=== PATIENT | male | born 1990 | race Caucasian/White ===

== ENCOUNTER 2017-04-09 11:43 | Emergency (ER) | payer SELFPAY | END 2017-04-09 15:17 | disposition home or self-care (01) | LOC: D.ER 11:43 | DX: J01.90 Acute sinusitis, unspecified (principal); J20.9 Acute bronchitis, unspecified ==

== ENCOUNTER 2017-06-01 02:09 | Emergency (ER) | payer MEDICAID | END 2017-06-01 02:51 | disposition home or self-care (01) | LOC: D.ER 02:09 | DX: J20.9 Acute bronchitis, unspecified (principal); H66.92 Otitis media, unspecified, left ear; F17.200 Nicotine dependence, unspecified, uncomplicated ==

== ENCOUNTER 2017-06-24 07:07 | Emergency (ER) | payer MEDICAID | END 2017-06-24 08:08 | disposition home or self-care (01) | LOC: D.ER 07:07 | DX: J11.1 Influenza due to unidentified influenza virus with other respiratory manifestations (principal); F17.200 Nicotine dependence, unspecified, uncomplicated ==

== ENCOUNTER 2017-06-29 20:30 | Emergency (ER) | payer MEDICAID | END 2017-06-29 21:10 | disposition home or self-care (01) | LOC: D.ER 20:30 | DX: J20.9 Acute bronchitis, unspecified (principal); J06.9 Acute upper respiratory infection, unspecified; F17.200 Nicotine dependence, unspecified, uncomplicated ==

== ENCOUNTER 2017-12-08 21:52 | Emergency (ER) | payer MEDICAID ==
[~2017-12-08] VITALS: Ht 180.3 cm; Wt 109.3 kg
[2017-12-08 21:59] VITALS: Ht 180.3 cm; Wt 109.3 kg
[2017-12-08 22:24] LABS: BASOPHILS 0.5 % (0-2); EOSINOPHILS 2.1 % (0-7); HEMOGLOBIN 16.5 g/dL (13.5-17.5); IMMATURE GRANULOCYTES 0.2 % (0-5); LYMPHOCYTES 44.4 % (15-50); MCH 32.2 pg (26.0-34.0); MCHC 36.7 g/dL (31.0-37.0); MCV 87.9 fL (80.0-100.0); MEAN PLATELET VOLUME 10.8 fL (7.4-10.4); NEUTROPHILS 45.8 % (40-80); PLATELET COUNT 338 10x3/uL (130-400); RBC 5.12 10x6/uL (4.20-6.10); RDW 11.8 % (11.5-14.5); WBC 11.3 10x3/uL (4.8-10.8)
[2017-12-08 22:33] LABS: INR 0.94 (0.85-1.17)
[2017-12-08 22:36] LABS: APTT 29.2 SECONDS (22.8-39.4)
[2017-12-08 23:00] LABS: ALBUMIN 3.9 g/dL (3.4-5.0); ALKALINE PHOSPHATASE 90 U/L (46-116); BILIRUBIN - TOTAL 0.54 mg/dL (0.2-1.3); CARBON DIOXIDE 26.1 mmol/L (21.0-32.0); CHLORIDE - SERUM 102 mmol/L (98-107); CKMB 0.6 U/L (0.0-3.6); CREATINE KINASE 116 UL (21-232); CREATININE - SERUM 1.1 mg/dL (0.6-1.3); PRO BNP 10 pg/mL (0-125); TROPONIN-I < 0.017 ng/mL (0.000-0.060); eGFR NON AFRICAN AMERICAN 87 mL/min (90-120)
[2017-12-08 23:28] LABS: ALT (SGPT) 13 U/L (10-68); UREA NITROGEN 9 mg/dL (7-18)
[2017-12-08 23:29] LABS: SODIUM 138 mmol/L (136-145)
[2017-12-08 23:30] LABS: CALC OSMOLALITY 276 mosm/kg (275-300); GLUCOSE 140 mg/dL (74-106); POTASSIUM - SERUM 4.1 mmol/L (3.5-5.1); PROTEIN - SERUM 7.3 g/dL (6.4-8.2)
[2017-12-09 00:19] VITALS: BP 122/80
== END 2017-12-09 00:19 | disposition home or self-care (01) ==
LOC: D.ER 21:52
PROVIDERS: Family Medicine
DX: R07.9 Chest pain, unspecified (principal)

== ENCOUNTER 2018-04-18 12:16 | Emergency (ER) | payer SELFPAY ==
[~2018-04-18] VITALS: Ht 180.3 cm; Wt 93.2 kg
[2018-04-18 12:19] VITALS: Ht 180.3 cm; Wt 93.2 kg
[2018-04-18 12:45] LABS: BASOPHILS 0.1 % (0-2); EOSINOPHILS 0.2 % (0-7); HEMATOCRIT 48.5 % (42.0-54.0); HEMOGLOBIN 17.1 g/dL (13.5-17.5); IMMATURE GRANULOCYTES 0.2 % (0-5); LYMPHOCYTES 6.7 % (15-50); MCH 31.1 pg (26.0-34.0); MCHC 35.3 g/dL (31.0-37.0); MCV 88.2 fL (80.0-100.0); MEAN PLATELET VOLUME 10.4 fL (7.4-10.4); MONOCYTES 3.7 % (2-11); NEUTROPHILS 89.1 % (40-80); PLATELET COUNT 278 10x3/uL (130-400); RDW 12.2 % (11.5-14.5); WBC 13.2 10x3/uL (4.8-10.8)
[2018-04-18 13:05] LABS: ANION GAP 12.8 mmol/L (8-16); BILIRUBIN - TOTAL 1.1 mg/dL (0.2-1.3); CALCIUM 8.8 mg/dL (8.5-10.1); CARBON DIOXIDE 28.3 mmol/L (21.0-32.0); CREATININE - SERUM 1.3 mg/dL (0.6-1.3); POTASSIUM - SERUM 4.1 mmol/L (3.5-5.1); PROTEIN - SERUM 7.7 g/dL (6.4-8.2)
[2018-04-18] MEDS ORDERED: ZOFRAN4 MG PO (14:05)
[2018-04-18 14:37] VITALS: BP 130/79
== END 2018-04-18 14:38 | disposition home or self-care (01) ==
LOC: D.ER 12:16
PROVIDERS: Emergency Medicine
DX: K52.9 Noninfective gastroenteritis and colitis, unspecified (principal)